=== PATIENT | male | born 1960 | race Caucasian/White ===

== ENCOUNTER 2019-12-24 12:49 | Day surgery (SDC) | payer OTHER, SELFPAY ==
[2019-12-24] VITALS (9 sets, daily range): BP systolic 112–159; BP diastolic 72–97; PULSE 75–92; RESP 12–22; TEMP 36.4–36.9; O2SAT 95–99
--- NOTE | ~2019-12-24 | CT_ITS ---
EXAMINATION: CT abdomen pelvis w con DATE: 12/24/2019 15:09 INDICATION: Right lower abdominal pain TECHNIQUE: Computed tomography (CT) of the abdomen and pelvis was performed with 100 cc Omnipaque 350 intravenous contrast. The dose-length product was 1479.03 mGy-cm. Automated exposure control and ite rative reconstruction technique were employed. COMPARISON: CT dated 05/23/2017 FINDINGS: Lung bases are unremarkable. Heart size is normal. No significant pleural or pericardial ef fusion. The appendix is mildly thickened measuring up to 10 mm transversely with minimal periappendiceal infi ltration, suspicious for acute appendicitis. Diffuse fatty infiltration of the liver. Enlarged prostate gland. The spleen, pancreas, adrenal gland s are unremarkable. There are nonobstructing bilateral renal stones. There are small subcentimeter hy podensities of both kidneys, most likely benign cysts. Gallbladder is present. Nonobstructive bowel g as pattern. Prostate gland is enlarged. Colonic diverticulosis without diverticulitis. No free air or free fluid. Moderate lower thoracic and lumbar spondylosis. IMPRESSION: 1. Appendix is mildly thickened measuring up to 10 mm transversely with minimal periappendiceal infil tration, suspicious for acute appendicitis. Clinically correlate. 2: Nonobstructing bilateral nephrolithiasis. 3: Hepatic steatosis. Reviewed, dictated and finalized at location A. IMPRESSION: 1. Appendix is mildly thickened measuring up to 10 mm transversely with minimal periappendiceal infiltration, suspicious for acute appendicitis. Clinically co rrelate. 2: Nonobstructing bilateral nephrolithiasis. 3: Hepatic steatosis.
[2019-12-24] MEDS: FAMOTIDINE 20 MG/2 ML VIAL IV PUSH (14:37)
[2019-12-24] MEDS: SODIUM CHLORIDE 0.9% IV 1,000 ML 999 ML IV CONT (14:38)
[2019-12-24] MEDS: ONDANSETRON INJ 4 MG/2 ML VIAL IV PUSH ×2 (14:38→18:55)
--- NOTE | 2019-12-24 14:45 | ED.ABDPAIN ---
HPI - Abdominal Pain General Chief Complaint: Abdominal Pain <LUDWIG Talley Last Filed: 12/24/19 16:04> Stated Complaint: abd pain <LUDWIG Talley Last Filed: 12/24/19 16:04> Time Seen by Provider: 12/24/19 12:50 <LUDWIG Talley Last Filed: 12/24/19 16:04> Source: patient <LUDWIG Talley Last Filed: 12/24/19 16:04> Mode of arrival: ambulatory <LUDWIG Talley Last Filed: 12/24/19 16:04> History of Present Illness HPI narrative: Patient is a 59-year-old male who presents to emergency department for evaluation right lower quadrant pain that began over the last day patient notes aching pain to the right lower quadrant denies radiation of pain patient denies any similar occurrence in the past has not taken anything for his symptoms and presents per private vehicle for evaluation <LUDWIG Talley Last Filed: 12/24/19 16:04> Related Data Home Medications: Home Medications Medication Instructions Recorded Confirmed aspirin 81 mg tablet,delayed 81 mg PO DAILY 10/21/19 10/23/19 release atorvastatin 10 mg tablet 10 mg PO DAILY 10/21/19 10/23/19 clomiphene citrate 50 mg tablet PO 10/21/19 10/23/19 losartan 25 mg tablet 25 mg PO DAILY 10/21/19 10/23/19 metformin 500 mg tablet 500 mg PO DAILY 10/21/19 10/23/19 tamsulosin 0.4 mg capsule 0.4 mg PO DAILY 10/23/19 10/23/19 terbinafine HCl 250 mg tablet 250 mg PO DAILY 10/23/19 10/23/19 <LUDWIG Talley Last Filed: 12/24/19 16:04> Allergies/Adverse Reactions: Allergies Allergy/AdvReac Type Severity Reaction Status Date / Time No Known Allergies Allergy Verified 12/24/19 13:06 <LUDWIG Talley Last Filed: 12/24/19 16:04> Review of Systems Review of Systems: All systems reviewed & are unremarkable except as noted in HPI and below <LUDWIG Talley Last Filed: 12/24/19 16:04> PMFSH Past Medical History Medical History: Medical History (Updated 12/24/19 @ 16:59 by Aric Mckenzie MD) BPH (benign prostatic hyperplasia) History of pneumonia Hyperlipidemia Kidney stone ONESIMO (obstructive sleep apnea) Type II diabetes mellitus Urinary tract infection <Omar Emerson PA-C - Last Filed: 12/24/19 16:04> Surgical History Surgical History: Surgical History H/O foot surgery H/O gynecomastia Hemorrhoid <Omar Emerson PA-C - Last Filed: 12/24/19 16:04> Family History Family History: Family History Father Family history of cardiovascular disease, Onset Age: 84 Gout Mother , metastatic lung cancer Metastatic lung carcinoma <LUDWIG Talley Last Filed: 12/24/19 16:04> Social History Social History: Social History Smoking status: Never smoker Alcohol intake: current Alcohol use details: Rarely. 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 Gender identity (if verbalized by the patient): Male <LUDWIG Talley Last Filed: 12/24/19 16:04> Exam Narrative: Exam Narrative: GENERAL: Well-appearing, obese, and in no acute distress. HEAD: Normocephalic, atraumatic. EYES: PERRLA and EOMI. ENT: Nares clear, no rhinorrhea or epistaxis. Mucous membranes moist. CHEST: Clear to auscultation. No respiratory distress. No wheezes rales or rhonchi HEART: Regular rate and rhythm. No murmur heard. Normal peripheral pulses. ABDOMEN: Soft, focal right lower quadrant tenderness to palpation no rebound or guarding noted, nondistended, normal active bowel sounds. EXTREMITIES: Normal range of motion. No edema. SKIN: Warm, dry, no rash. NEURO: No focal deficits. Alert and oriented x3. PSYCH: Normal mood and affect.
[2019-12-24 14:52] LABS: Basophils Absolute Auto 0.1 K/mm3 (0.0-0.1); Basophils Percent Auto 0.9 % (0.2-1.2); Eosinophils Percent Auto 0.1 % (0-4.4); Hematocrit 47.5 % (42.0-52.0); Hemoglobin 15.4 g/dL (14.0-18.0); Immature Granulocyte Absolute 0.04 K/mm3 (0.00-0.031); Immature Granulocyte Percent A 0.5 % (0-0.5); Lymphocytes Absolute Auto 2.18 K/mm3 (0.9-3.2); Lymphocytes Percent Auto 28.6 % (18.3-44.2); Mean Corpuscular HGB Conc 32.4 g/dl (32-36); Mean Corpuscular Hemoglobin 29.1 pg (26-34); Mean Corpuscular Volume 89.8 fl (80-100); Monocytes Absolute Auto 0.5 K/mm3 (0.1-0.6); Monocytes Percent Auto 7.1 % (2.6-8.5); Neutrophils Absolute Auto 4.8 K/mm3 (1.3-6.7); Neutrophils Percent Auto 62.8 % (45.5-73.1); Platelet Count Result 173 k/mm3 (150-375); Red Blood Count 5.29 M/mm3 (4.6-6.20); Red Cell Distribution Width 13.2 % (11.5-14.5); White Blood Count 7.6 K/mm3 (4.5-10.0)
[2019-12-24 15:01] LABS: Alanine Aminotransferase 35 U/L (4-50); Albumin Level 4.3 g/dL (3.5-5.1); Alkaline Phosphatase 118 U/L (38-126); Aspartate Amino Transferase 41 U/L (17-59); Bilirubin,Total 0.6 mg/dL (0.2-1.3); Blood Urea Nitrogen 14 mg/dL (9-20); Calcium 9.3 mg/dL (8.4-10.2); Carbon Dioxide 28 mmol/L (22-30); Chloride 101 mmol/L (98-107); Estimated CRCL calculation 114 ml/min; Estimated Glomerular Filt Rate > 60; Glucose 140 mg/dL (75-110); Lipase 129 U/L (23-300); Potassium 3.9 mmol/L (3.4-5.0); Sodium 136 mmol/L (137-145)
[2019-12-24 15:12] LABS: Estimated CRCL calculation 102 ml/min; Estimated Glomerular Filt Rate > 60
[2019-12-24 15:46] LABS: Add Urine Microscopic? YES; Appearance Urine Clear (Clear); Bacteria Urine Trace /hpf; Bilirubin Urine Negative (Negative); Blood Urine 1+ (Negative); Color Urine Yellow (Yellow); Glucose Urine UA Negative (Negative); Ketones Urine Trace mg/dL (Negative); Leukocyte Esterase Ur Negative LEU/UL (Negative); Mucus Urine Rare /lpf; Nitrate Urine Negative (Negative); Protein Urine Negative (Negative); Urobilinogen Urine Negative mg/dL (<2.0); WBC Urine 0-3 /hpf
--- NOTE | 2019-12-24 16:18 | PM.IMHP ---
H&P: HPI History of Present Illness Chief complaint: abd pain Narrative: Sam Trent is a 59 year old male who presented to the emergency department with complaints of right lower quadrant pain by the instruction of his PCP. The patient reports that around 8 am yesterday he had a gradual onset of generalized mild abdominal pain. Throughout the day, his abdominal pain became more focal to the right lower quadrant and continued to worsen in severity. The patient reports that he called his PCP this morning due to the constant pain and she directed him to the emergency department. CT scan of the abdomen and pelvis showed a dilated appendix measurinf up to 10 mm with minimal periappendiceal infiltration, suspicious for possible acute appendicitis. Labs were unremarkable with normal white blood cell count. Urinalysis negative for UTI. Our service was contacted for the possible acute appendicitis and the patient is now being evaluated in the emergency department. He reports still having focal RLQ abdominal pain. Denies nausea, vomiting, fever, or chills. No other complaints at this time. He does reports recently being diagnosed with type II diabetes and taking metformin and another oral medication for his diabetes. Reportedly, his last hemoglobin A1C was 7.6. Review of Systems Constitutional: Constitutional: Reports as per HPI, Denies chills, Denies excessive sweating, Denies fatigue, Denies fever(s), Denies headache(s) and Denies weakness Eyes: Eyes: Denies change in vision and Denies loss of vision ENT: Reports Normal hearing present, Denies dizziness and Denies headache(s) Cardiovascular: Cardiovascular: Denies chest pain, Denies syncope, Denies leg edema, Denies lightheadedness, Denies radiating jaw, neck or arm pain and Denies dyspnea Respiratory: Respiratory: Denies cough, Denies dyspnea and Denies wheezing Gastrointestinal: Gastrointestinal: Reports as per HPI, Reports abdominal pain (RLQ), Denies bloating, Denies change in bowel habits, Denies change in stool character, Denies constipation, Denies diarrhea, Denies nausea and Denies vomiting Musculoskeletal: Musculoskeletal: Denies deformity, Denies joint swelling, Denies radiating pain into limb and Denies tingling Integumentary/Breasts: Skin/Breast: Denies pruritus, Denies wounds and Denies jaundice Neurologic: Reports Normal hearing present, Denies confusion, Denies dizziness, Denies syncope, Denies headache(s), Denies loss of vision, Denies tingling, Denies tremor(s) and Denies weakness Psychiatric: Psychiatric: Denies anxiety, Denies confusion and Denies depression Endocrine: Endocrine: Denies cold intolerance, Denies excessive sweating, Denies fatigue and Denies heat intolerance Comments: Recent diagnosis of diabetes. Hgb A1C 7.6 reportedly. [facility] Past Medical History Medical History BPH (benign prostatic hyperplasia) History of pneumonia Kidney stone ONESIMO (obstructive sleep apnea) Type II diabetes mellitus Urinary tract infection Surgical History Surgical History H/O foot surgery H/O gynecomastia Hemorrhoid Family History Family History Father Family history of cardiovascular disease, Onset Age: 84 Gout Mother , metastatic lung cancer Metastatic lung carcinoma Social History Social History Smoking status: Never smoker Alcohol intake: current Alcohol use details: Rarely. 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 Gender identity (if verbalized by the patient): Male Meds Home Medications and Allergies Home Medications Medication Instructions Recorded Confirmed Type aspirin 81 mg tablet,delayed 81 mg
[2019-12-24] MEDS: LACTATED RINGERS 1,000 ML 30 ML IV CONT ×2 (16:50→17:58)
[2019-12-24 16:51] LABS: Glucose Point of Care 140 (65-105)
--- NOTE | 2019-12-24 16:58 | WPDANESEPPF ---
Anes - Initial Pre Proc Eval Procedure: Operation Date: 12/24/19 16:30 Proposed Procedures p Laparoscopic Appendectomy - Brenna Sage MD Date/Time: 12/24/19 16:58 Surgeon: Brenna Sage MD Pre Op Diagnosis: abd pain Patient Data Age: 59 Gender: M Height: 5 ft 7 in Weight: 136 kg Last Vital Signs Temp 36.4 C 12/24/19 13:02 Pulse 89 12/24/19 16:25 Resp 16 12/24/19 16:25 BP 138/91 H 12/24/19 16:25 Pulse Ox 98 12/24/19 16:25 Allergies Allergy/AdvReac Type Severity Reaction Status Date / Time No Known Allergies Allergy Verified 12/24/19 13:06 Home Medications Medication Instructions Recorded Confirmed Type aspirin 81 mg tablet,delayed 81 mg PO DAILY 10/21/19 10/23/19 History release atorvastatin 10 mg tablet 10 mg PO DAILY 10/21/19 10/23/19 History clomiphene citrate 50 mg tablet PO 10/21/19 10/23/19 History losartan 25 mg tablet 25 mg PO DAILY 10/21/19 10/23/19 History metformin 500 mg tablet 500 mg PO DAILY 10/21/19 10/23/19 History tamsulosin 0.4 mg capsule 0.4 mg PO DAILY 10/23/19 10/23/19 History terbinafine HCl 250 mg tablet 250 mg PO DAILY 10/23/19 10/23/19 History Laboratory Tests 12/24/19 12/24/19 12/24/19 14:39 14:39 15:05 WBC 7.6 K/mm3 K/mm3 (4.5-10.0) RBC 5.29 M/mm3 M/mm3 (4.6-6.20) Hgb 15.4 g/dL g/dL (14.0-18.0) Hct 47.5 % % (42.0-52.0) MCV 89.8 fl fl (80-100) MCH 29.1 pg pg (26-34) MCHC 32.4 g/dl g/dl (32-36) RDW 13.2 % % (11.5-14.5) Plt Count 173 k/mm3 k/mm3 (150-375) MPV 12.0 fl H fl (7.4-10.4) Immature Gran % (Auto) 0.5 % % (0-0.5) Neut % (Auto) 62.8 % % (45.5-73.1) Lymph % (Auto) 28.6 % % (18.3-44.2) Amite % (Auto) 7.1 % % (2.6-8.5) Eos % (Auto) 0.1 % % (0-4.4) Baso % (Auto) 0.9 % % (0.2-1.2) Lymph # (Auto) 2.18 K/mm3 K/mm3 (0.9-3.2) Amite # (Auto) 0.5 K/mm3 K/mm3 (0.1-0.6) Eos # (Auto) 0.0 K/mm3 K/mm3 (0-0.3) Baso # (Auto) 0.1 K/mm3 K/mm3 (0.0-0.1) Abs Immat Gran (auto) 0.04 K/mm3 H K/mm3 (0.00-0.031) Absolute Neuts (auto) 4.8 K/mm3 K/mm3 (1.3-6.7) Absolute Nucleated RBC 0.0 K/mm3 K/mm3 (0.0-0.012) Nucleated RBC % 0.0 % % (0.0-0.2) Sodium 136 mmol/L L mmol/L (137-145) Potassium 3.9 mmol/L mmol/L (3.4-5.0) Chloride 101 mmol/L mmol/L (98-107) Carbon Dioxide 28 mmol/L mmol/L (22-30) BUN 14 mg/dL mg/dL (9-20) Creatinine 0.80 mg/dL mg/dL 0.90 mg/dL mg/dL (0.7-1.3) (0.8-1.5) Estim Creat Clear Calc 114 ml/min ml/min 102 ml/min ml/min Estimated GFR > 60 > 60 (59 - ) (59 - ) Glucose 140 mg/dL H mg/dL (75-110) POC Capillary Glucose Calcium 9.3 mg/dL mg/dL (8.4-10.2) Total Bilirubin 0.6 mg/dL mg/dL (0.2-1.3) AST 41 U/L U/L (17-59) ALT 35 U/L U/L (4-50) Alkaline Phosphatase 118 U/L U/L (38-126) Total Protein 7.0 g/dL g/dL (6.3-8.2) Albumin 4.3 g/dL g/dL (3.5-5.1) Lipase 129 U/L U/L (23-300) Urine Color Urine Appearance Urine pH Ur Specific Woodruff Urine Protein Urine Glucose (UA) Urine Ketones Ur Blood (Man) Urine Nitrate Urine Bilirubin Urine Urobilinogen Leukocyte Esterase Rfl Urine RBC Urine WBC Urine Bacteria Urine Mucus 12/24/19 12/24/19 15:29 16:46 WBC RBC Hgb Hct MCV MCH MCHC RDW Plt Count MPV Immature Gran % (Auto) Neut % (Auto) Lymph % (Auto)
[2019-12-24] MEDS: BUPIVACAINE/EPINEPHRINE 0.5% 30 ML VIAL INFILTRATE (17:35)
[2019-12-24] MEDS: KETOROLAC 30 MG/ML VIAL (*BKC) 15 MG IV PUSH (17:40)
--- NOTE | 2019-12-24 17:48 | PM.PROC ---
Procedure Note - Detailed Date of procedure: 12/24/19 Pre-op diagnosis: acute appendicitis acute appendicitis Procedure performed: Laparoscopic appendectomy Description of procedure: The patient was brought into the operating room placed in the supine position. After adequate induction of general anesthesia, the patient was prepped and draped in normal sterile fashion. A time-out was then done to verify the patient's identity as well as the procedure being performed. I began by making a 5 mm incision in the infraumbilical region. A veres needle was used to gain access into the peritoneal cavity. Once into the peritoneal cavity, CO2 gas was insufflated. After adequate pneumoperitoneum was achieved, a 5 mm Optiview trocar was placed into the peritoneal cavity. The laparoscope was placed into the 5 mm trocar. Under direct visualization, I went ahead and placed a further 5 mm suprapubic port as well as a 12 mm port in the left lower abdomen. At this point, I was able to visualize cecum. The cecum was retracted both cephalad and medial, and this allowed us to expose the appendix. The appendix was noted to be very dilated, injected, and inflamed. There was no obvious perforation of the appendix. I then grasped the appendix near the tip of the appendix and retracted both anterior and lateral. This allowed exposure of the base of the appendix with the cecum. I then created a window with the Ayleen dissector between the appendix and the mesoappendix at the base of the appendix. Once this was achieved, a vascular staple load on the Endo-EDIS was placed through the 12 mm port site and subsequently transected the mesoappendix. I then reloaded the Endo-EDIS with a blue staple load and transected the base of the appendix with the cecum. Once the appendiceal specimen was completely detached, a Endo pouch was placed through the 12 mm port site. The appendix was placed into the Endo pouch and removed through the 12 mm port site. The appendix will now be sent to pathology for further review. I then visualized the right lower quadrant, both staple lines were noted to be intact and hemostatic. No other pathology was noted in the right lower quadrant or pelvis. I then moved the laparoscope to the 5 mm suprapubic port. I then visualized our port of entry at the 5 mm infraumbilical site. No iatrogenic injury or other pathology was seen in the upper abdomen. I then desufflated the abdomen and all ports were removed. The fascia of the 12 mm port site was closed with an 0 Vicryl figure of 8 suture. All port sites were then closed with 4 O Monocryl subcuticular suture. The patient tolerated the procedure well and was extubated in the operating room postoperatively. The patient will be transferred to the recovery room in stable condition. Anesthesia: GETA Surgeon: Brenna Sage MD Estimated blood loss (mL): 5 Drains: No Packing: No Pathology: yes Complications: No immediate complications Condition: stable Disposition: PACU Findings: Acute uncomplicated appendicitis
[2019-12-24 18:31] LABS: Glucose Point of Care 152 (65-105)
== END 2019-12-24 19:37 | disposition home or self-care (01) ==
LOC: ANHED 15:53 → ANHSURGERY 16:05
PROVIDERS: Emergency Medicine Emergency Medical Services; Emergency Provider Emergency Medicine; PCP Family Medicine; Visit Provider Surgery
PROC: 0DTJ4ZZ Resection of Appendix, Percutaneous Endoscopic Approach (ICD-10-PCS; CPT 44970; principal; 2019-12-24 16:30)
DX: K35.30 Acute appendicitis with localized peritonitis, without perforation or gangrene (principal); K36 Other appendicitis; E78.5 Hyperlipidemia, unspecified; E11.9 Type 2 diabetes mellitus without complications; G47.33 Obstructive sleep apnea (adult) (pediatric); N40.0 Benign prostatic hyperplasia without lower urinary tract symptoms; Z79.82 Long term (current) use of aspirin; Z79.84 Long term (current) use of oral hypoglycemic drugs
CPT/HCPCS: 44970; 36415; 74177; 80053; 81001; 83690; 85025; 88304; 96365; 96375; 99285; A9270; J0131; J0330; J1100; J1885; J2250; J2405; J2543; J2704; J2710; J3010; J7030; J7120; Q9967

== ENCOUNTER 2020-01-23 04:17 | Outpatient (CLI) | payer OTHER, SELFPAY ==
[2020-01-23 18:08] LABS: SARS-CoV-2 RNA PCR Negative
== END 2020-01-23 04:18 | disposition home or self-care (01) ==
LOC: ANHCOVIDDT 04:18
PROVIDERS: PCP Family Medicine; Visit Provider Internal Medicine Gastroenterology
DX: Z01.812 Encounter for preprocedural laboratory examination (principal); Z11.59 Encounter for screening for other viral diseases
CPT/HCPCS: 87635; C9803; U0003

== ENCOUNTER 2020-01-26 00:11 | Day surgery (SDC) | payer OTHER, SELFPAY ==
[2020-01-20 12:45] VITALS: BMI 46.9
[2020-01-26 07:50] VITALS: BP 145/87; PULSE 74; RESP 20; TEMP 36.8; O2SAT 97
[2020-01-26] MEDS: LACTATED RINGERS 1,000 ML 150 ML IV CONT (08:03)
--- NOTE | 2020-01-26 08:04 | WPDANESEPPF ---
Anes - Initial Pre Proc Eval Procedure: Operation Date: 01/26/20 09:00 Proposed Procedures p Screening Colonoscopy - Aries Hagen MD Date/Time: 01/26/20 08:04 Surgeon: Aries Hagen MD Pre Op Diagnosis: Neoplasm Screening/ Hx Colon Polyps Patient Data Age: 59 Gender: M Height: 5 ft 7 in Weight: 134.7 kg Last Vital Signs Temp 36.8 C 01/26/20 07:50 Pulse 74 01/26/20 07:50 Resp 20 01/26/20 07:50 BP 145/87 H 01/26/20 07:50 Pulse Ox 97 01/26/20 07:50 Allergies Allergy/AdvReac Type Severity Reaction Status Date / Time No Known Allergies Allergy Verified 01/26/20 07:44 Home Medications Medication Instructions Recorded Confirmed Type aspirin 81 mg tablet,delayed 81 mg PO DAILY 10/21/19 01/26/20 History release atorvastatin 10 mg tablet 10 mg PO DAILY 10/21/19 01/26/20 History clomiphene citrate 50 mg tablet 25 mg PO EVERY OTHER DAY 10/21/19 01/26/20 History losartan 25 mg tablet 25 mg PO DAILY 10/21/19 01/26/20 History metformin 500 mg tablet 500 mg PO DAILY 10/21/19 01/26/20 History tamsulosin 0.4 mg capsule 0.4 mg PO DAILY 10/23/19 01/26/20 History docusate sodium [Colace] 100 mg PO BID #20 cap 12/24/19 01/26/20 Rx tramadol 50 mg PO Q4H PRN #30 tablet 12/24/19 01/26/20 Rx glipizide 10 mg PO DAILY 01/26/20 01/26/20 History Patient hx anesthesia problems: none Family hx anesthesia problems: none PMFSH Past Medical History Medical History BPH (benign prostatic hyperplasia) History of pneumonia Hyperlipidemia Kidney stone ONESIMO (obstructive sleep apnea) Type II diabetes mellitus Urinary tract infection Surgical History Surgical History H/O foot surgery H/O gynecomastia Hemorrhoid S/P laparoscopic appendectomy 12/24/19 Family History Family History Father Family history of cardiovascular disease, Onset Age: 84 Gout Mother , metastatic lung cancer Metastatic lung carcinoma Social History Social History Smoking status: Never smoker Alcohol intake: current Substance use: never 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 Gender identity (if verbalized by the patient): Male Anes - Eval Final PreProcedure Day of Procedure 01/26/20 08:04 Patient weight: morbidly obese Heart: regular rate and rhythm Lungs: clear to auscultation Airway: Mallampati scale class II Neurological: alert and oriented Last oral intake: >/= 8 hours ASA classification: III Emergent: no Anesthetic plan: proceed Anesthesia type and monitoring: general GIVS and standard monitoring Informed Consent: The patient's anesthetic plan and its attendant risks and benefits were discussed with the patient/family/POA. Questions were solicited and answers provided to the satisfaction of the patient/family/POA.
[2020-01-26 08:08] LABS: Glucose Point of Care 158 (65-105)
--- NOTE | 2020-01-26 08:11 | WPDGICN ---
Assessment and Plan Assessment and plan (1) History of colon polyps: Code(s): Z86.010 - Personal history of colonic polyps Status: Acute Assessment and Plan: Plan is for surveillance colonoscopy now and at 5 year intervals in the future. Because of prior history of colon polyps. High-fiber diet advised. (2) Morbid obesity with BMI of 45.0-49.9, adult: Code(s): E66.01 - Morbid (severe) obesity due to excess calories; Z68.42 - Body mass index (BMI) 45.0-49.9, adult Status: Acute GI Consult Note Consult date/time: 01/26/20 08:11 HPI: Sam Trent is a 59 year old male seen in evaluation at the request of Dr Juarez. Patient presents for follow-up colonoscopy. Patient has a history of colon polyps most recently 5 years ago. He states his current weight appetite bowel movements are normal. He presents today for colonoscopy. Family history is significant both grandparents have had colon cancer. There is no reported history of colon cancer or and parents. However mother had lung cancer. patient reports having had appendectomy 5 weeks prior to this time. He is healing well at this point is bowel habits are returned to normal. He denies any abdominal pain. Denies any blood in his stools. Review of Systems Review of Systems: All systems reviewed & are unremarkable except as noted in HPI and below PMFSH Past Medical History Medical History BPH (benign prostatic hyperplasia) History of pneumonia Hyperlipidemia Kidney stone ONESIMO (obstructive sleep apnea) Type II diabetes mellitus Urinary tract infection Surgical History Surgical History H/O foot surgery H/O gynecomastia Hemorrhoid S/P laparoscopic appendectomy 12/24/19 Family History Family History Father Family history of cardiovascular disease, Onset Age: 84 Gout Mother , metastatic lung cancer Metastatic lung carcinoma Social History Social History Smoking status: Never smoker Alcohol intake: current Substance use: never 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 Gender identity (if verbalized by the patient): Male Meds Home Medications and Allergies Home Medications Medication Instructions Recorded Confirmed Type aspirin 81 mg tablet,delayed 81 mg PO DAILY 10/21/19 01/26/20 History release atorvastatin 10 mg tablet 10 mg PO DAILY 10/21/19 01/26/20 History clomiphene citrate 50 mg tablet 25 mg PO EVERY OTHER DAY 10/21/19 01/26/20 History losartan 25 mg tablet 25 mg PO DAILY 10/21/19 01/26/20 History metformin 500 mg tablet 500 mg PO DAILY 10/21/19 01/26/20 History tamsulosin 0.4 mg capsule 0.4 mg PO DAILY 10/23/19 01/26/20 History docusate sodium [Colace] 100 mg PO BID #20 cap 12/24/19 01/26/20 Rx tramadol 50 mg PO Q4H PRN #30 tablet 12/24/19 01/26/20 Rx glipizide 10 mg PO DAILY 01/26/20 01/26/20 History Allergies Allergy/AdvReac Type Severity Reaction Status Date / Time No Known Allergies Allergy Verified 01/26/20 07:44 Vital Signs Vital Signs - 24 hr 01/26/20 07:50 Temperature 36.8 C Pulse Rate 74 Respiratory Rate 20 Blood Pressure 145/87 H Pulse Oximetry 97 Exam Narrative: Exam Narrative: Physical exam reveals patient to be alert. Vital signs stable. HEENT exam unremarkable. He is anicteric. Lungs are clear to auscultation and percussion. Heart is without murmur or extra sounds. Abdominal exam is somewhat obese. Bowel sounds are present soft nontender with no hepatosplenomegaly. He is well he healing incisions from recent laparoscopy. Digital external rectal exam is normal.
[2020-01-26 09:11] VITALS: BP 131/87; PULSE 79; RESP 21; O2SAT 99
[2020-01-26 09:21] VITALS: BP 131/87; PULSE 72; RESP 19; O2SAT 97
[2020-01-26 09:31] VITALS: BP 142/77; PULSE 73; RESP 18; O2SAT 98
== END 2020-01-26 09:37 | disposition home or self-care (01) ==
PROVIDERS: PCP Family Medicine; Visit Provider Internal Medicine Gastroenterology
PROC: 0DJD8ZZ Inspection of Lower Intestinal Tract, Via Natural or Artificial Opening Endoscopic (ICD-10-PCS; CPT 45378; principal; 2020-01-26 09:00)
DX: Z12.11 Encounter for screening for malignant neoplasm of colon (principal); D12.5 Benign neoplasm of sigmoid colon; K62.1 Rectal polyp; K64.8 Other hemorrhoids; E11.9 Type 2 diabetes mellitus without complications; E78.5 Hyperlipidemia, unspecified; N40.0 Benign prostatic hyperplasia without lower urinary tract symptoms; G47.33 Obstructive sleep apnea (adult) (pediatric); Z79.82 Long term (current) use of aspirin; Z79.84 Long term (current) use of oral hypoglycemic drugs; E66.01 Morbid (severe) obesity due to excess calories; Z68.42 Body mass index [BMI] 45.0-49.9, adult
CPT/HCPCS: 45385; 88305; J2704; J7120

== ENCOUNTER 2020-03-02 18:51 | Emergency (ER) | payer OTHER, SELFPAY ==
--- NOTE | ~2020-03-02 | XR_ITS ---
EXAMINATION: XR toe 1st LT min 2V EXAM DATE: 03/02/2020 19:23 INDICATION: Possible foreign body. TECHNIQUE: Left 1st finger frontal, lateral and oblique projections obtained and reviewed. There i s no prior study for comparison. FINDINGS: There are no acute left 1st toe fractures or dislocations identified. There is no subcutan eous gas. The soft tissue is unremarkable. There are no radiopaque foreign bodies. IMPRESSION: No radiopaque foreign bodies identified. Reviewed, dictated and finalized at location A.
[2020-03-02 19:00] VITALS: BP 155/82; PULSE 98; RESP 18; TEMP 36.8; O2SAT 98
--- NOTE | 2020-03-02 19:04 | ED.GENADULT ---
HPI - General Adult General Chief complaint: Wound/Laceration Stated complaint: splinter left great toe Time Seen by Provider: 03/02/20 19:04 Source: patient and RN notes reviewed Mode of arrival: ambulatory Limitations: no limitations History of Present Illness HPI narrative: 60-year-old male presents with complaints of foreign body in plantar of LEFT great toe and pain for 1 day. Sam says he was cleaning his basement on 03/01/20 and later felt as if something was in his toe, unable to visualize anything. No known injury. No swelling, erythema, or drainage. Hurts to bear weight. No radiation of pain. No numbness or tingling or loss of mobility. Denies inability to bear weight. 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 Relieving factor is rest. No fever or chills. Suspect foreign body (splinter). The patient reports he have not been diagnosed with COVID-19. The patient reports he is not waiting for the results of a COVID-19 lab test. The patient reports he do not have fever, chills, weakness, or fatigue. The patient reports he do not have a new or worsening cough or shortness of breath. Denies chest pain. The patient reports he do not have any rhinorrhea, congestion, sore throat, nausea, vomiting, abdominal pain, and diarrhea. Tolerating po intake well. Denies recent traveling. Denies concerns for COVID-19 or exposures been home with limited outdoor exposure except for essential household needs, work, and return home. At this time, patient is not suspected of having COVID-19. Some parts of this dictation were generated by voice recognition software and may contain typographical and/or grammatical inaccuracies. Related Data Home Medications Medication Instructions Recorded Confirmed aspirin 81 mg tablet,delayed 81 mg PO DAILY 10/21/19 01/26/20 release atorvastatin 10 mg tablet 10 mg PO DAILY 10/21/19 01/26/20 clomiphene citrate 50 mg tablet 25 mg PO EVERY OTHER DAY 10/21/19 01/26/20 losartan 25 mg tablet 25 mg PO DAILY 10/21/19 01/26/20 metformin 500 mg tablet 500 mg PO DAILY 10/21/19 01/26/20 tamsulosin 0.4 mg capsule 0.4 mg PO DAILY 10/23/19 01/26/20 glipizide 10 mg PO DAILY 01/26/20 01/26/20 Allergies Allergy/AdvReac Type Severity Reaction Status Date / Time No Known Allergies Allergy Verified 01/26/20 07:44 Review of Systems Review of Systems: Narrative: CONSTITUTIONAL: Denies fever, chills, sweats. EYES: Denies visual changes, redness, discharge. ENT: Denies rhinorrhea, congestion, sore throat, otalgia. CARDIOVASCULAR: Denies chest pain, palpitations, edema. RESPIRATORY: Denies dyspnea, wheezing, cough. GASTROINTESTINAL: Denies abdominal pain, nausea, vomiting, diarrhea. GENITOURINARY: Denies dysuria, hematuria, abnormal discharge. SKIN: Denies rash or itching. MUSCULOSKELETAL: Denies acute back pain or myalgia. Complains of LT great toe with foreign body in plantar area and tenderness. Denies swelling, erythema. NEUROLOGIC: Denies numbness or focal weakness. PSYCHIATRIC: Denies anxiety or depression. All systems reviewed & are unremarkable except as noted in HPI and below PMFSH Past Medical History Medical History BPH (benign prostatic hyperplasia) History of pneumonia Hyperlipidemia Kidney stone ONESIMO (obstructive sleep apnea) Type II diabetes mellitus Urinary tract infection Surgical History Surgical History H/O foot surgery H/O gynecomastia Hemorrhoid S/P laparoscopic appendectomy 12/24/19 Family History Family History Father Family history of cardiovascular disease, Onset Age: 84 Gout Mother , metastatic lung cancer Metastatic lung carcinoma Social History Social History Smoking status: Never smoker Alcohol intake: lynda
== END 2020-03-02 19:46 | disposition home or self-care (01) ==
PROVIDERS: Emergency Provider Nurse Practitioner Family; PCP Family Medicine
DX: S90.112A Contusion of left great toe without damage to nail, initial encounter (principal); E11.9 Type 2 diabetes mellitus without complications; E78.2 Mixed hyperlipidemia; N40.0 Benign prostatic hyperplasia without lower urinary tract symptoms; Z79.82 Long term (current) use of aspirin; Z79.84 Long term (current) use of oral hypoglycemic drugs; X58.XXXA Exposure to other specified factors, initial encounter; Y92.008 Other place in unspecified non-institutional (private) residence as the place of occurrence of the external cause
CPT/HCPCS: 73660; 99213; G0463

== ENCOUNTER 2020-05-31 12:29 | Outpatient (NON) | payer OTHER, SELFPAY ==
[2020-06-01 22:36] LABS: SARS-CoV-2 RNA PCR Negative
== END 2020-05-31 12:30 ==
LOC: ANHCOVIDDT 12:29
PROVIDERS: PCP Family Medicine; Visit Provider Family Medicine
DX: Z20.828 Contact with and (suspected) exposure to other viral communicable diseases (principal); R05 Cough
CPT/HCPCS: 87635; C9803; U0003

== ENCOUNTER 2020-06-01 10:13 | Emergency (ER) | payer OTHER, SELFPAY ==
--- NOTE | ~2020-06-01 | XR_ITS ---
EXAMINATION: XR foot LT min 3V EXAM DATE: 06/01/2020 11:30 INDICATION: twisted foot yesterday, heard a 'pop', pain on 1st metatarsal . Initial encounter. TECHNIQUE: Left foot dorsoplantar, lateral and oblique projections obtained and reviewed. There is n o prior study for comparison. FINDINGS: Left metatarsal bones unremarkable. There are no acute fractures or dislocations identifi ed. There is no subcutaneous gas. The soft tissue is unremarkable. There are no radiopaque foreig n bodies. IMPRESSION: No acute osseous findings. Reviewed, dictated and finalized at location B. L OR MOTEL RECEPTIONIST IMPRESSION: No acute osseous findings.
[2020-06-01 10:25] VITALS: BP 116/84; PULSE 85; RESP 20; TEMP 36.9; O2SAT 97
--- NOTE | 2020-06-01 11:09 | ED.EXTPRO ---
HPI - Extremity Problem General Chief complaint: Extremity Problem,Nontraumatic Stated complaint: L/ankle pain Time Seen by Provider: 06/01/20 11:09 Source: patient and RN notes reviewed Mode of arrival: ambulatory Limitations: no limitations History of Present Illness HPI Narrative: 60-year-old male presents with complaints of left foot pain for the past 4 days. Sam says he was sitting in bed and rotated foot and heard a popping noise, otherwise no known injury. Advil 400mg (last on 05/31/20) without relief. Hurts to bear weight. No radiation of pain. No numbness, tingling, or loss of mobility. Exacerbating factor applying weight and extending foot. Denies inability to bear weight. Denies discoloration. Denies suspect foreign body. Remains active. The patient reports he have not been diagnosed with COVID-19. The patient reports he is not waiting for the results of a COVID-19 lab test. The patient reports he do not have fever, chills, weakness, or fatigue. The patient reports he do not have a new or worsening cough or shortness of breath. Denies chest pain. The patient reports he do not have any rhinorrhea, congestion, loss of taste, sore throat, nausea, vomiting, abdominal pain, and diarrhea. Tolerating po intake well. Denies recent traveling. Denies concerns for COVID-19 or exposures been home with limited outdoor exposure except for essential household needs, work, and return home. At this time, patient is not suspected of having COVID-19. Some parts of this dictation were generated by voice recognition software and may contain typographical and/or grammatical inaccuracies. Related Data Home Medications Medication Instructions Recorded Confirmed aspirin 81 mg tablet,delayed 81 mg PO DAILY 10/21/19 06/01/20 release atorvastatin 10 mg tablet 10 mg PO DAILY 10/21/19 06/01/20 clomiphene citrate 50 mg tablet 25 mg PO EVERY OTHER DAY 10/21/19 06/01/20 losartan 25 mg tablet 25 mg PO DAILY 10/21/19 06/01/20 metformin 500 mg tablet 500 mg PO DAILY 10/21/19 06/01/20 tamsulosin 0.4 mg capsule 0.4 mg PO DAILY 10/23/19 06/01/20 glipizide 10 mg PO DAILY 01/26/20 06/01/20 Allergies Allergy/AdvReac Type Severity Reaction Status Date / Time No Known Allergies Allergy Verified 01/26/20 07:44 Review of Systems Review of Systems: Narrative: CONSTITUTIONAL: Denies fever, chills, sweats. EYES: Denies visual changes, redness, discharge. ENT: Denies rhinorrhea, congestion, sore throat, otalgia. CARDIOVASCULAR: Denies chest pain, palpitations, edema. RESPIRATORY: Denies dyspnea, wheezing, cough. GASTROINTESTINAL: Denies abdominal pain, nausea, vomiting, diarrhea. SKIN: Denies rash or itching. MUSCULOSKELETAL: Denies acute back pain or myalgia. Complains of pain to left foot. NEUROLOGIC: Denies numbness or focal weakness. PSYCHIATRIC: Denies anxiety or depression. All other systems reviewed are negative, except as documented in HPI and below. FORMERLY [facility], [facility] Past Medical History Medical History (Updated 06/01/20 @ 11:27 by TILA Martinez) BPH (benign prostatic hyperplasia) History of colon polyps History of pneumonia Hyperlipidemia Kidney stone Morbid obesity with BMI of 45.0-49.9, adult ONESIMO (obstructive sleep apnea) Type II diabetes mellitus Urinary tract infection Surgical History Surgical History (Updated 06/01/20 @ 11:23 by TILA Martinez) H/O foot surgery H/O gynecomastia Hemorrhoid History of arthroscopy of knee RT S/P laparoscopic appendectomy 12/24/19 Family History Family History Father Family history of cardiovascular disease, Onset Age: 84 Gout Mother , metastatic lung cancer Metastatic lung carcinoma Social History Social History (Updated 06/01/20 @ 11:24 by TILA Martinez) Smoking status: Never smoker Tobacco type: cigarettes Second hand tobacco smoke exposure: No Alcohol intak
[2020-06-01] MEDS: KETOROLAC (*BKC) 60 MG/2 ML VIAL IM (11:23)
--- NOTE | 2020-06-01 11:53 | PC.NURSE ---
randall wrap applied STORY TELLER INTACT
== END 2020-06-01 11:49 | disposition home or self-care (01) ==
PROVIDERS: Emergency Provider Nurse Practitioner Family; PCP Family Medicine
DX: M25.572 Pain in left ankle and joints of left foot (principal); N40.0 Benign prostatic hyperplasia without lower urinary tract symptoms; E78.5 Hyperlipidemia, unspecified; G47.33 Obstructive sleep apnea (adult) (pediatric); E11.9 Type 2 diabetes mellitus without complications; E66.01 Morbid (severe) obesity due to excess calories; Z68.41 Body mass index [BMI] 40.0-44.9, adult
CPT/HCPCS: 73630; 96372; 99213; G0463; J1885

== ENCOUNTER → 2021-03-15 13:00 | Outpatient (CLI) | payer OTHER, SELFPAY ==
--- NOTE | ~2021-03-15 | MR_ITS ---
EXAMINATION: MR ankle LT wo con DATE: 03/15/2021 13:46 INDICATION: Left ankle pain TECHNIQUE: Magnetic resonance imaging (MRI) of the left ankle was performed without intravenous contr ast. Sequences included sagittal, coronal, and axial proton-density weighted fast spin echo without a nd with fat saturation. COMPARISON: None. FINDINGS: Medial ankle ligaments: Scarring consistent with chronic sprain of the deep deltoid ligament with associated mild medial mall eolar cystic change and edema at the insertion of the distal deltoid ligament. Thickening and mild in creased signal of the anterior superficial deltoid ligament also consistent with scarring related to chronic sprain. The spring ligament complex is normal. Lateral ankle ligaments: The anterior and posterior inferior tibiofibular ligaments are normal. Mild thickening of the anterio r talofibular and calcaneofibular ligaments without surrounding edema consistent with scarring relate d to chronic sprain. Heterotopic ossification at the talar side of the posterior talofibular ligament and mildly disorganized pattern of ligament fibers consistent with additional sequela of chronic spr ain. Tendons: Achilles tendon is normal. Mild fusiform thickening and mild increased intrasubstance signal of the p eroneus longus tendon consistent with mild tendinopathy without discrete tear. The peroneus brevis te ndon is normal. The tibialis anterior and extensor hallucis longus and extensor digitorum longus tend ons are normal. Small amount of fluid surrounding the normal-appearing tibialis posterior tendon cons istent with mild tenosynovitis. The flexor digitorum longus and flexor hallucis longus tendons are no rmal. Plantar fascia: Plantar aponeurosis is normal. Bones/other: Bone alignment is normal. No fracture. Osteoarthritis at the left ankle with mild nonuniform joint sp randall narrowing. Most prominent medially at the articulation between the medial aspect of the talar dom e and the medial malleolus where there is subarticular edema both sides of the joint space. There is deep chondral ulceration and fissuring with mild underlying subarticular cystic change along the late ral rim of the talar dome. Prominent marginal osteophytes at the anterior margins of the tibial plafo nd and talar dome. Mild osteoarthritis at the tarsometatarsal joints. No pathologic marrow replacing process. Lisfranc ligament complex is normal. Sinus Tarsi and tarsal tunnel are unremarkable. Fluid: Physiologic amount fluid in the joint spaces. Mild subcutaneous edema overlying the lateral malleolus . IMPRESSION: 1. Mild polyarticular osteoarthritis at the left ankle and multiple tarsal metatarsal joints. 2. Ligament scarring and small amounts of heterotopic ossification consistent with chronic medial and lateral ankle sprains. 3. Mild peroneus longus tendinopathy without discrete tear. 4. Mild tibialis posterior tenosynovitis with normal-appearing tendon. Reviewed, dictated and finalized at location A. IMPRESSION: 1. Mild polyarticular osteoarthritis at the left ankle and multiple tarsal meta tarsal joints. 2. Ligament scarring and small amounts of heterotopic ossification consistent w ith chronic medial and lateral ankle sprains. 3. Mild peroneus longus tendinopathy without discrete tear. 4. Mild tibialis posterior tenosynovitis with normal-appearing tendon.
== END ==
PROVIDERS: Visit Provider Student in an Organized Health Care Education/Training Program
DX: M19.072 Primary osteoarthritis, left ankle and foot (principal); S93.492A Sprain of other ligament of left ankle, initial encounter; X58.XXXA Exposure to other specified factors, initial encounter
CPT/HCPCS: 73721

== ENCOUNTER → 2021-08-28 12:06 | Outpatient (CLI) | payer OTHER, SELFPAY ==
--- NOTE | ~2021-08-28 | MR_ITS ---
EXAMINATION: MR knee LT wo con DATE: 08/28/2021 12:49 INDICATION: Left knee pain TECHNIQUE: Magnetic resonance imaging (MRI) of the left knee was performed without intravenous contra st. Sequences included coronal PD-weighted FSE, coronal PD-weighted FS FSE, sagittal T2-weighted FSE , sagittal PD-weighted FS FSE and axial PD weighted fat saturated FSE. COMPARISON: None. FINDINGS: Medial compartment: Medial meniscus is normal. Shallow chondral fissuring with mild chondral surface irregularity along t he medial tibial plateau and anterior to central weightbearing medial femoral condyle. Lateral compartment: Lateral meniscus is normal. Small region of partial-thickness chondral fissuring involving less than 50% the cartilage thickness along the posterior aspect of the lateral tibial plateau. Cartilage along the weightbearing lateral femoral condyle is normal. Patellofemoral compartment: Chondral fissure which appears to involve greater than 50% the cartilage thickness at the medial mahoney llar facet. Trochlear cartilage is normal. Ligaments and tendons: Anterior and posterior cruciate ligaments are normal. There is thickening and mild intrasubstance sig nal along the proximal medial collateral ligament with mild surrounding edema consistent with low to moderate grade sprain. The fibular collateral ligament complex is normal. Mild patellar tendinopathy with enthesophytes at its anterior tibial tubercle insertion. Quadriceps tendon is normal. The visual ized medial and lateral hamstring tendons as well as the iliotibial band are normal. Fluid: Physiologic amount of fluid in the joint space. No loose osteochondral bodies identified. There is mi ld prepatellar edema without discrete bursal fluid collection. Osseous/other: Normal marrow signal. No fracture or pathologic marrow replacing process. IMPRESSION: 1. Low to moderate grade sprain of the proximal medial collateral ligament with surrounding edema sug gesting relatively recent injury. 2. Mild tricompartmental osteoarthritis with small regions of moderate grade chondromalacia in all 3 compartments.. Reviewed, dictated and finalized at location A. S COORDINATOR IMPRESSION: 1. Low to moderate grade sprain of the proximal medial collateral ligament with surrounding edema suggesting relatively recent injury. 2. Mild tricompartmental osteoarthritis with small regions of moderate grade ch ondromalacia in all 3 compartments..
== END ==
PROVIDERS: PCP Family Medicine; Visit Provider Orthopaedic Surgery
DX: M25.562 Pain in left knee (principal); S83.412A Sprain of medial collateral ligament of left knee, initial encounter; M17.12 Unilateral primary osteoarthritis, left knee; M94.262 Chondromalacia, left knee
CPT/HCPCS: 73721

== ENCOUNTER 2022-01-05 07:55 | Outpatient (CLI) | payer OTHER, SELFPAY ==
--- NOTE | 2022-01-05 08:00 | ECG_ITS ---
Measurements Intervals [place] Rate: 70 P: 56 PA: 171 QRS: 34 QRSD: 108 T: 30 QT: 412 QTc: 446 Interpretive Statements SINUS RHYTHM NORMAL ECG NO PREVIOUS ECG AVAILABLE FOR COMPARISON Electronically Signed On 01-05-2022 14:10:01 CDT by Richard Reyna M.D.
[2022-01-05 08:32] LABS: Anion Gap 8 mmol/L (8-16); Blood Urea Nitrogen 21 mg/dL (9-20); Calcium 8.7 mg/dL (8.4-10.2); Carbon Dioxide 24 mmol/L (22-30); Chloride 107 mmol/L (98-107); Estimated Glomerular Filt Rate > 60; Glucose 128 mg/dL (65-110); Potassium 4.3 mmol/L (3.4-5.0); Sodium 139 mmol/L (137-145)
== END 2022-01-05 07:56 | disposition home or self-care (01) ==
LOC: ANHSURGERY 07:58
PROVIDERS: Anesthesiology; PCP Family Medicine; Visit Provider Orthopaedic Surgery
DX: E11.9 Type 2 diabetes mellitus without complications (principal); Z01.818 Encounter for other preprocedural examination
CPT/HCPCS: 36415; 80048; 93005

== ENCOUNTER 2022-01-08 01:17 | Day surgery (SDC) | payer OTHER, SELFPAY ==
[2022-01-01 10:30] VITALS: BMI 45.4
--- NOTE | 2022-01-01 10:53 | PC.NURSE ---
Report to the Outpatient Waiting Room, entrance under the green pavilion located off [facility], at time 10:00 on date 01/08/22. OR Time: 12:00. - You and your visitor will be asked a series of questions to screen for COVID 19 for your protection. - Only one visitor is allowed at this time. - The patient visitor is requested to leave or wait in car when not with patient. - A mask is required within the hospital. Patients may have clear liquids (water, carbonated beverages, clear teas, apple juice) until 3 hours prior to surgery (9:00) with a maximum of 20 ounces. - No food from midnight until time of surgery Take the following medications with a SIP of water the morning of surgery: NONE Medications to discontinue per physician: N/A Date to take last dose: N/A Please no make-up, nail ukrainian, hairspray, perfume, deodorant, or body powder the day of surgery. No jewelry (including any body piercings) or valuables the day of surgery, leave them at home. Please take a shower or bath the night before, or the morning of, surgery with an antibacterial soap. Wear comfortable, loose fitting clothing. - Jewelry must be removed prior to entering the operating room. Rings and piercings that are not removed may be cut off. - The hospital will not accept responsibility for valuables. - Please leave all valuables, including medications, at home the day of surgery. If you are going home after surgery, a licensed milk pickup truck driver must drive you home. - NO public transportation without another adult. - We recommend that an adult stay with you for 24 hours following discharge. - We also recommend that you do not drive, make important decision, drink alcoholic beverages, or take any drugs that were not prescribed by your health care provider for at least 24 hours after your discharge time. Follow any additional instructions given to you from your surgeon. If you or anyone in your household have experienced Covid symptoms in the past week, please notify your surgeon or the nurse liaison at the phone number below for possible testing. Telephone instructions given to PT - KARIE PATEL and asked if any additional questions and then verbalized understanding. Patient advised to call surgeon office or pre surgery nurse liaison [phone] if any additional questions.
--- NOTE | 2022-01-05 13:46 | WPDANESEPPF ---
Anes - Initial Pre Proc Eval Procedure: Operation Date: 01/08/22 10:30 Proposed Procedures p Left Knee Arthroscopy, with Meniscectomy - Mark Chau MD Date/Time: 01/05/22 13:46 Surgeon: Mark Chau MD Pre Op Diagnosis: left knee medial meniscal tear Patient Data Age: 61 Gender: M Height: 1.7 m Weight: 131.54 kg Allergies Allergy/AdvReac Type Severity Reaction Status Date / Time No Known Allergies Allergy Verified 01/08/22 09:08 Home Medications Medication Instructions Recorded Confirmed Type aspirin 81 mg tablet,delayed 81 mg PO DAILY 10/21/19 01/08/22 History release (Aspir-) atorvastatin 10 mg tablet 10 mg PO DAILY 10/21/19 01/08/22 History clomiphene citrate 50 mg tablet 25 mg PO DAILY 10/21/19 01/08/22 History losartan 25 mg tablet 25 mg PO DAILY 10/21/19 01/08/22 History metformin 500 mg tablet 500 mg PO DAILY 10/21/19 01/08/22 History tamsulosin 0.4 mg capsule 0.4 mg PO DAILY 10/23/19 01/08/22 History meloxicam 15 mg tablet (Mobic) 15 mg PO DAILY #30 tabs 08/30/21 01/08/22 Rx glimepiride 2 mg tablet 2 mg PO DAILY 01/01/22 01/08/22 History insulin degludec 200 unit/mL (3 20 unit subcut HS 01/01/22 01/08/22 History mL) subcutaneous pen (Tresiba FlexTouch U-200 insulin) semaglutide 1 mg/dose (2 mg/1.5 1 mg subcut WEEKLY 01/03/22 History mL) subcutaneous pen injector (Ozempic) Patient hx anesthesia problems: none Family hx anesthesia problems: none Results Review: All pre-operative results and documents have been reviewed as part of the pre-operative evaluation. [facility] Past Medical History Medical History Acquired varus deformity of left ankle BPH (benign prostatic hyperplasia) Cavovarus deformity of foot, acquired Claustrophobia mild per patient questionnaire Diabetes Diarrhea Excessive thirst Hair loss Hemoglobin A1C between 7% and 9% indicating borderline diabetic control september 2020- = 7.1 History of anesthesia problem History of colon polyps History of pneumonia HTN (hypertension) Hyperlipidemia Kidney stone Morbid obesity with BMI of 45.0-49.9, adult ONESIMO (obstructive sleep apnea) Sleep disorder Type II diabetes mellitus Last A1c 7.1 Urinary frequency Urinary hesitancy Urinary tract infection Wears glasses Weight gain Surgical History Surgical History H/O foot surgery H/O gynecomastia H/O shoulder surgery Rotator Cuff 2014 *per patient questionnaire Hemorrhoid History of ankle surgery Right ankle 2006 *per patient questionnaire History of arthroscopy of knee RT S/P laparoscopic appendectomy 12/24/19 Family History Family History Father Family history of cardiovascular disease, Onset Age: 84 Gout Mother , metastatic lung cancer Metastatic lung carcinoma Other Brain cancer Carcinoma of colon HLD (hyperlipidemia) Social History Social History Smoking status: Never smoker Second hand tobacco smoke exposure: No Alcohol intake: current Alcohol use details: A COUPLE/YEAR Substance use: current Substance use type: marijuana Other substance usage details: THC GUMMIES FOR PAIN Living arrangements: with family 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 Gender identity (if verbalized by the patient): Male Spiritual care concerns: No Anes - Eval Final PreProcedure Day of Procedure 01/05/22 13:46 Patient weight: morbidly obese Heart: regular rate and rhythm Lungs: clear to auscultation Airway: Mallampati scale class II Neurological: alert and oriented Last oral intake: >/= 8 hours ASA classification: III Emergent: no Anesthetic plan: proceed Anesthesia type and monitoring: general LMA and standard monitoring Results Review: All pre-o
[2022-01-08] VITALS (9 sets, daily range): BP systolic 118–166; BP diastolic 75–99; PULSE 69–98; RESP 11–22; TEMP 36.6; O2SAT 93–100
[2022-01-08] MEDS: ACETAMINOPHEN 500 MG TABLET 1000 MG PO (09:15)
[2022-01-08] MEDS: LACTATED RINGERS 1,000 ML 30 ML IV CONT (09:20)
[2022-01-08 09:34] LABS: Glucose Point of Care 116 mg/dl (65-105)
--- NOTE | 2022-01-08 09:46 | WPDHPUPDATE1 ---
History and Physical Update Update Date/Time: 01/08/22 09:46 History and Physical has been reviewed, including an updated exam of the patient. There are NO changes in the patient's condition. Risks, benefits, and alternatives have been discussed and questions answered. Patient agrees to proceed with procedure.
[2022-01-08] MEDS: KETOROLAC 15 MG/ML VIAL (*BKC) IV PUSH (10:00)
[2022-01-08] MEDS: ceFAZolin 3 GM/D5W 100 ML 100 ML IVPB (10:31)
--- NOTE | 2022-01-08 11:42 | P.OP_ITS ---
Procedure Note - Detailed Date of Procedure 01/08/22 Pre-op Diagnosis left knee medial meniscal tear Post-op Diagnosis Other (Left knee medial meniscal tear with medial synovitis) Procedure Performed Left knee arthroscopy, partial medial meniscectomy, extensive medial synovectomy Surgeon Mark Chau MD Ice Cream Vault Worker Antonette Diallo Description of Procedure The patient was identified and proper site identified and he was taken to the operating room, transferred to the OR table placing her supine taking care to pa d the torso and extremities. After general anesthetic induction and intubation, a nonsterile tourniquet was placed high on the left thigh but was not used. The left lower extremity was positioned, prepped and draped in usual sterile fashion. 10 cc of 1% lidocaine was injected into the subcutaneous tissue in the area of the portals at start of the procedure, and an additional 10 at the end. The portals were established and the arthroscopy was carried out. Articular cartilage anteriorly showed extensive fraying on the undersurface of the patella however femoral trochlea was pretty good shape. Some fraying noted of the apex of the lateral meniscus as well as early fibrillation of the lateral articular cartilage. Anterior posterior cruciate ligaments were in continuity. Medially there were is grade 2 and three changes noted with complex tearing of the medial meniscus posterior horn into the midbody. The meniscus was contoured back to a stable rim with basket forceps and a shaver. Arthrocare Wand was used for hemostasis. Lateral gutter was clear. The medial gutter there was extensive synovitis with synovial proliferation along the medial margin of the medial femoral condyle. This area was debrided with a shaver and then reamed up with the ArthroCare Wand. There was also synovial proliferation overlying the anterior horn of the medial meniscus which was also debrided in that and cautery used for hemostasis. The knee was flushed with a copious amount of arthroscopic fluid and equipment was removed. Portals were closed with three O nylon suture and a sterile dressing was applied. He tolerated the procedure well, was awakened, extubated and taken to recovery area in stable condition. There were no known intraoperative complications. Estimated blood loss was negligible; he received perioperative antibiotics. Estimated Blood Loss 15 Tourniquet Time 0 Drains No Packing No Pathology None sent Complications No immediate complications Condition Stable Disposition PACU
[2022-01-08 11:46] LABS: Glucose Point of Care 125 mg/dl (65-105)
[2022-01-08] MEDS: fentaNYL CITRATE INJ (*CRX) 100 MCG/2 ML VIAL 25 MCG IV PUSH (12:23)
[2022-01-08] MEDS: ONDANSETRON INJ 4 MG/2 ML VIAL IV PUSH (12:57)
[2022-01-08] MEDS: oxyCODONE HCL (*CRX) 5 MG TAB IR PO (13:15)
--- NOTE | 2022-01-08 13:57 | SUR.PHASEII ---
[id number] BERNAL IN REGARDS TO PATIENT WANTING SOMETHING FOR PAIN BESIDES HYDROCODONE.
--- NOTE | 2022-01-08 14:05 | SUR.PHASEII ---
1404 DR BERNAL CALLED BACK & STATES A NEW PRESCRIPTION FOR PAIN WILL BE CALLED INTO THE PATIENT'S PHARMACY.
== END 2022-01-08 14:12 | disposition home or self-care (01) ==
PROVIDERS: PCP Family Medicine; Visit Provider Orthopaedic Surgery
PROC: (CPT 29870; principal; 2022-01-08 10:30)
DX: M23.322 Other meniscus derangements, posterior horn of medial meniscus, left knee (principal); M65.862 Other synovitis and tenosynovitis, left lower leg; Z79.899 Other long term (current) drug therapy; E11.9 Type 2 diabetes mellitus without complications; I10 Essential (primary) hypertension; E78.5 Hyperlipidemia, unspecified; G47.33 Obstructive sleep apnea (adult) (pediatric); N40.0 Benign prostatic hyperplasia without lower urinary tract symptoms; Z79.4 Long term (current) use of insulin; Z79.84 Long term (current) use of oral hypoglycemic drugs; Z79.82 Long term (current) use of aspirin; F12.90 Cannabis use, unspecified, uncomplicated; E66.01 Morbid (severe) obesity due to excess calories; Z68.42 Body mass index [BMI] 45.0-49.9, adult
CPT/HCPCS: 29881; 82948; A9270; J0690; J1100; J1885; J2405; J2704; J3010; J7120

== ENCOUNTER 2022-01-12 09:15 | Outpatient (RCR) | payer OTHER, SELFPAY ==
[2021-11-22 09:37] VITALS: BMI 45.8
[2021-11-22 09:44] VITALS: BMI 45.8
== END 2022-02-07 11:44 | disposition home or self-care (01) ==
LOC: ANHDMC 09:15
PROVIDERS: PCP Family Medicine; Visit Provider Nurse Practitioner
DX: E11.65 Type 2 diabetes mellitus with hyperglycemia (principal); E11.649 Type 2 diabetes mellitus with hypoglycemia without coma; Z71.3 Dietary counseling and surveillance; Z71.89 Other specified counseling
CPT/HCPCS: 97802; G0108

== ENCOUNTER → 2022-01-23 10:49 | Outpatient (CLI) | payer OTHER, SELFPAY ==
--- NOTE | ~2022-01-23 | CT_ITS ---
EXAMINATION: CT abdomen pelvis wo/w con DATE: 01/23/2022 11:38 INDICATION: Microscopic hematuria. History of kidney stone 22 years ago TECHNIQUE: Computed tomography (CT) of the abdomen and pelvis was performed without and subsequently with 130 CC Omnipaque 300 intravenous contrast. Automated exposure control and iterative reconstructi on technique were employed. Exam dose: 2263.89 mGy-cm total exam DLP. COMPARISON: 01/23/2022 KUB 12/24/2019 CT abdomen pelvis FINDINGS: The lung bases are clear. Normal heart size. No pericardial or pleural effusion. There is diffuse hepatic steatosis. No hepatic space-occupying mass lesion is evident. The gallbladde r is present. No bile duct or pancreatic duct dilatation. No pancreatic mass lesion or calcification is detected. Normal splenic size. Normal morphology of the adrenal glands. Very small right lower pole and mid renal cyst. 5 mm left renal cyst. There are 2 approximately 3 mm or smaller nonobstructing left renal calculi. There are proxy 5 pinpoint nonobstructing calculi and/or arterial calcifications of the right kidney. No ureteral calculus or hydroureteronephrosis of either kidney. Normal caliber of the abdominal aorta. No intraperitoneal or retroperitoneal or pelvic mass lesion or adenopathy or ascites. The urinary bladder is unremarkable. There is prostate enlargement and calcification. There is mild colonic diverticulosis; no CT evidence of diverticulitis. Status post appendectomy. No bowel obstruction, bowel wall thickening, pneumatosis or intraperitoneal free air is detected. Diffuse idiopathic skeletal hyperostosis of the thoracic and upper lumbar spine. No suspicious osteol ytic or osteoblastic lesions are noted. IMPRESSION: Hepatic steatosis Mild bilateral nonobstructive nephrolithiasis; no ureteral calculus or hydroureteronephrosis Prostate enlargement and calcification Status post appendectomy Mild colonic diverticulosis; no evidence of diverticulitis Reviewed, dictated and finalized at Location A. Reviewed, dictated and finalized at location B. IMPRESSION: Hepatic steatosis Mild bilateral nonobstructive nephrolithiasis; no ureteral calculus or hydroure teronephrosis Prostate enlargement and calcification Status post appendectomy Mild colonic diverticulosis; no evidence of diverticulitis
--- NOTE | ~2022-01-23 | XR_ITS ---
EXAMINATION: XR abdomen/kub 1V INDICATION: Microscopic hematuria TECHNIQUE: Supine views of the abdomen were obtained on 2 radiographs. COMPARISON: CT from today FINDINGS: Punctate bilateral nephrolithiasis seen on today's CT is not well demonstrated. No urolithi asis is seen. There are phleboliths of the pelvis. The bowel gas pattern is normal. There is a modera te volume of colonic stool. There is moderate lumbar spondylosis. IMPRESSION: 1. No urolithiasis identified. Reviewed, dictated and finalized at location A.
[2022-01-23 11:16] LABS: Estimated Glomerular Filt Rate > 60
== END ==
PROVIDERS: PCP Family Medicine; Visit Provider Urology
DX: R31.29 Other microscopic hematuria (principal); K76.0 Fatty (change of) liver, not elsewhere classified; N20.0 Calculus of kidney; N40.0 Benign prostatic hyperplasia without lower urinary tract symptoms; K57.30 Diverticulosis of large intestine without perforation or abscess without bleeding; M47.816 Spondylosis without myelopathy or radiculopathy, lumbar region
CPT/HCPCS: 74018; 74178; Q9967

== ENCOUNTER 2022-01-24 08:45 | Outpatient (RCR) | payer OTHER, SELFPAY ==
--- NOTE | 2022-01-10 10:05 | PTOPEVAL ---
PHYSICAL THERAPY EVALUATION AND PLAN OF CARE 01-10-22 Thank you for referring Sam Trent to [facility], s/p L knee arthroscopy. He is scheduled to be seen for therapy? 1-2 x/week for 6 weeks. Please review, sign, date and return this plan of care MARY. I agree with and certify that the following plan of care is medically necessary. Referring Physician Date Attending Provider: Mark Chau MD Past Medical History Source of Past Medical History Recalled from Previous Visit, Confirmed with Patient/Family Neurological History Hx Neurological Disorders No Significant History Cardiovascular History Hx Hypercholesterolemia Yes: meds Hx Hypertension Yes: meds Respiratory History Hx Pneumonia Yes: CHILDHOOD Hx Sleep Apnea Yes: BiPAP Gastrointestinal History Hx Appendectomy Yes Hx Hemorrhoids Yes: HEMORRHOIDECTOMY Hx Other Gastrointestinal Disorders Yes: FREQUENT DIARRHEA Genitourinary History Hx Benign Prostatic Hyperplasia Yes Hx Kidney Stones Yes Musculoskeletal History Hx Arthritis Yes: knee and ankle L Hx Crutches or Walker Use Yes: CRUTCHES Query Text:If Yes, Enter Crutches, Walker, or Both in the Comment Hx Fractures Yes: ARM A CHILD, TOES Hx Orthopedic Surgery Yes: R FOOT ORIF, RT KNEE SCOPE, LT rot cuff repair Hx Other Musculoskeletal Disorders Yes: L ankle pain- have orthotics for shoe; B hip pain Hematological History Hx Hematological Disorders No Significant History Endocrine History Hx Diabetes Yes: type 2-meds HEENT History Hx Tonsillectomy Yes Integumentary History Hx Skin Disorders No Significant History Reproductive History Hx Reproductive Disorders No Significant History Psychosocial History Hx Depression Yes Pain History History of Any Previous or Ongoing No Significant History Instance of Pain Anesthesia History Hx Post-Op Nausea/Vomiting Yes Other History Hx Implanted Device Yes: RT HEEL SCREW Hx Other Medical Conditions Yes: obesity-- working on wt loss- have gained since decr mobility Evaluation Information Diagnosis L knee arthroscopy Onset 01-08-22 Subjective Information since surgery, resting with Query Text:As Reported By Patient/ ice and elevation to L LE; Family using crutches for walking; have had L knee and ankle problems since 2019; Prior Level of Function Activity Level (Last 3 Months) Occupation [employer] professor Activity of Daily Living Ability Independent Indoor
--- NOTE | 2022-01-16 09:22 | PCPTNOTE ---
Patient canceled appointment this date due to having to attend a .
== END 2022-04-05 13:33 | disposition home or self-care (01) ==
LOC: ANHPT 08:45
PROVIDERS: PCP Family Medicine; Visit Provider Orthopaedic Surgery
DX: Z48.89 Encounter for other specified surgical aftercare (principal); Z98.890 Other specified postprocedural states
CPT/HCPCS: 97110; 97112; 97161; 97530

== ENCOUNTER 2022-03-07 08:56 | Outpatient (CLI) | payer OTHER, SELFPAY ==
--- NOTE | ~2022-03-07 | US_ITS ---
EXAMINATION:US venous doppler LE LT INDICATION:Left popliteal pain TECHNIQUE: Multiple grayscale, color flow and Doppler images of the left lower extremity deep venous systems were obtained and reviewed. COMPARISON:No prior studies for comparison. FINDINGS: The common femoral, superficial femoral and popliteal veins demonstrate normal respiratory variation, augmentation and compressibility. Color flow is also seen within the posterior tibial, pe roneal, greater saphenous and profunda veins. IMPRESSION: 1: No lower extremity deep venous thrombosis. Reviewed, dictated and finalized at location A.
== END 2022-03-07 08:57 | disposition home or self-care (01) ==
PROVIDERS: PCP Family Medicine; Visit Provider Orthopaedic Surgery
DX: M79.605 Pain in left leg (principal); M79.89 Other specified soft tissue disorders
CPT/HCPCS: 93971

== ENCOUNTER 2022-03-13 09:12 | Outpatient (RCR) | payer OTHER, SELFPAY | END 2022-05-07 16:26 | disposition home or self-care (01) | LOC: ANHDMC 09:12 | PROVIDERS: PCP Family Medicine; Visit Provider Nurse Practitioner | DX: E11.65 Type 2 diabetes mellitus with hyperglycemia (principal); Z71.89 Other specified counseling | CPT/HCPCS: 99199; G0108 ==

== ENCOUNTER 2023-06-14 00:20 | Day surgery (SDC) | payer OTHER, SELFPAY ==
[2023-05-31 13:28] VITALS: BMI 44.4
--- NOTE | 2023-06-12 09:14 | SUR.PREOP ---
Patient called regarding upcoming procedure. Reviewed preop instructions, appointment times, and procedure prep.
--- NOTE | 2023-06-13 15:43 | PM.HPGS ---
History of Present Illness History of Present Illness Consent: Risks, benefits, and alternatives have been discussed and questions answered. Patient agrees to proceed with procedure. Chief complaint: Iron Deficiency Anemia,Unspecified Narrative: Sam Trent is a 63 year old male with a history of polyps who also has been found to have iron deficiency anemia. His last colonoscopy was 8 years ago. Review of Systems Review of Systems: All systems reviewed & are unremarkable except as noted in HPI and below PMFSH Past Medical History Medical History Acquired varus deformity of left ankle BPH (benign prostatic hyperplasia) Cavovarus deformity of foot, acquired Claustrophobia mild per patient questionnaire Diabetes Diarrhea Excessive thirst Hair loss Hemoglobin A1C between 7% and 9% indicating borderline diabetic control september 2020- = 7.1 History of anesthesia problem History of colon polyps History of pneumonia HTN (hypertension) Hyperlipidemia Kidney stone Morbid obesity with BMI of 45.0-49.9, adult ONESIMO (obstructive sleep apnea) Sleep disorder Type II diabetes mellitus Last A1c 7.1 Urinary frequency Urinary hesitancy Urinary tract infection Wears glasses Weight gain Surgical History Surgical History H/O foot surgery H/O gynecomastia H/O shoulder surgery Rotator Cuff 2014 *per patient questionnaire Hemorrhoid History of ankle surgery Right ankle 2006 *per patient questionnaire History of arthroscopy of knee RT History of arthroscopy of left knee Medial meniscectomy with medial synovectomy January 08, 2022 S/P laparoscopic appendectomy 12/24/19 Family History Family History Father Family history of cardiovascular disease, Onset Age: 84 Gout Mother , metastatic lung cancer Metastatic lung carcinoma Other Brain cancer Carcinoma of colon HLD (hyperlipidemia) Social History Social History Smoking status: Never smoker Second hand tobacco smoke exposure: No Alcohol intake: current Alcohol use details: A COUPLE/YEAR Substance use: current Substance use type: does not use Other substance usage details: THC GUMMIES FOR PAIN Living arrangements: with family Occupation/Education: occupation 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 Gender identity (if verbalized by the patient): Male Spiritual care concerns: No Meds Home Medications and Allergies Home Medications Medication Instructions Recorded Confirmed Type aspirin 81 mg tablet,delayed 81 mg PO DAILY 10/21/19 06/14/23 History release (Aspir-) atorvastatin 10 mg tablet 10 mg PO DAILY 10/21/19 06/14/23 History losartan 25 mg tablet 25 mg PO DAILY 10/21/19 06/14/23 History tamsulosin 0.4 mg capsule 0.4 mg PO DAILY 10/23/19 06/14/23 History glimepiride 2 mg tablet 2 mg PO DAILY 01/01/22 06/14/23 History insulin degludec 200 unit/mL (3 20 unit subcut HS 01/01/22 06/14/23 History mL) subcutaneous pen (Tresiba FlexTouch U-200 insulin) semaglutide 1 mg/dose (2 mg/1.5 1 mg subcut WEEKLY 01/03/22 06/14/23 History mL) subcutaneous pen injector (Ozempic) metformin 500 mg tablet 500 mg PO DAILY 08/31/22 06/14/23 History testosterone undecanoate 237 mg 237 mg PO BID 05/31/23 06/14/23 History capsule (Jatenzo) Allergies Allergy/AdvReac Type Severity Reaction Status Date / Time oxycodone Allergy Intermediate Nausea Verified 06/14/23 11:29 Exam Const: General: alert Orientation/consciousness: patient oriented x3 Resp: Auscultation: clear to auscultation bilaterally Cardio: Rhythm: regular rhythm GI: GI Palp: Yes Soft to palpation and No Tenderness to palpation present (GI) Neuro: General: patient oriented x3 Assessment and Plan Asses
[2023-06-14 11:30] VITALS: BMI 43.5
[2023-06-14 11:34] VITALS: BP 136/80; PULSE 68; RESP 20; TEMP 35.8; O2SAT 98
--- NOTE | 2023-06-14 11:39 | SUR.PREOP ---
Blood Sugar 99 per patient's dexcom.
[2023-06-14] MEDS: LACTATED RINGERS 1,000 ML 150 ML IV CONT (11:44)
--- NOTE | 2023-06-14 12:08 | WPDANESEPPF ---
Anes - Initial Pre Proc Eval Procedure: Operation Date: 06/14/23 12:30 Proposed Procedures p Colonoscopy - Gelacio Ashford MD Date/Time: 06/14/23 12:08 Surgeon: Gelacio Ashford MD Pre Op Diagnosis: Iron Deficiency Anemia,Unspecified Patient Data Age: 63 Gender: M Height: 1.7 m Weight: 126.1 kg Last Vital Signs Temp 96.5 F L 06/14/23 11:34 Pulse 68 06/14/23 11:34 Resp 20 06/14/23 11:34 BP 136/80 06/14/23 11:34 Pulse Ox 98 06/14/23 11:34 O2 Del Method Room Air 06/14/23 11:34 Allergies Allergy/AdvReac Type Severity Reaction Status Date / Time oxycodone Allergy Intermediate Nausea Verified 06/14/23 11:29 Home Medications Medication Instructions Recorded Confirmed Type aspirin 81 mg tablet,delayed 81 mg PO DAILY 10/21/19 06/14/23 History release (Aspir-) atorvastatin 10 mg tablet 10 mg PO DAILY 10/21/19 06/14/23 History losartan 25 mg tablet 25 mg PO DAILY 10/21/19 06/14/23 History tamsulosin 0.4 mg capsule 0.4 mg PO DAILY 10/23/19 06/14/23 History glimepiride 2 mg tablet 2 mg PO DAILY 01/01/22 06/14/23 History insulin degludec 200 unit/mL (3 20 unit subcut HS 01/01/22 06/14/23 History mL) subcutaneous pen (Tresiba FlexTouch U-200 insulin) semaglutide 1 mg/dose (2 mg/1.5 1 mg subcut WEEKLY 01/03/22 06/14/23 History mL) subcutaneous pen injector (Ozempic) metformin 500 mg tablet 500 mg PO DAILY 08/31/22 06/14/23 History testosterone undecanoate 237 mg 237 mg PO BID 05/31/23 06/14/23 History capsule (Jatenzo) Patient hx anesthesia problems: none Family hx anesthesia problems: none Results Review: All pre-operative results and documents have been reviewed as part of the pre-operative evaluation. [facility] Past Medical History Medical History Acquired varus deformity of left ankle BPH (benign prostatic hyperplasia) Cavovarus deformity of foot, acquired Claustrophobia mild per patient questionnaire Diabetes Diarrhea Excessive thirst Hair loss Hemoglobin A1C between 7% and 9% indicating borderline diabetic control september 2020- = 7.1 History of anesthesia problem History of colon polyps History of pneumonia HTN (hypertension) Hyperlipidemia Kidney stone Morbid obesity with BMI of 45.0-49.9, adult ONESIMO (obstructive sleep apnea) Sleep disorder Type II diabetes mellitus Last A1c 7.1 Urinary frequency Urinary hesitancy Urinary tract infection Wears glasses Weight gain Surgical History Surgical History H/O foot surgery H/O gynecomastia H/O shoulder surgery Rotator Cuff 2014 *per patient questionnaire Hemorrhoid History of ankle surgery Right ankle 2006 *per patient questionnaire History of arthroscopy of knee RT History of arthroscopy of left knee Medial meniscectomy with medial synovectomy January 08, 2022 S/P laparoscopic appendectomy 12/24/19 Family History Family History Father Family history of cardiovascular disease, Onset Age: 84 Gout Mother , metastatic lung cancer Metastatic lung carcinoma Other Brain cancer Carcinoma of colon HLD (hyperlipidemia) Social History Social History Smoking status: Never smoker Second hand tobacco smoke exposure: No Alcohol intake: current Alcohol use details: A COUPLE/YEAR Substance use: current Substance use type: does not use Other substance usage details: THC GUMMIES FOR PAIN Living arrangements: with family Occupation/Education: occupation 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
[2023-06-14 12:40] VITALS: BP 144/84; PULSE 72; RESP 20; O2SAT 100
[2023-06-14 12:50] VITALS: BP 139/78; PULSE 63; RESP 22; O2SAT 100
[2023-06-14 13:00] VITALS: BP 135/100; PULSE 68; RESP 19; O2SAT 100
[2023-06-14 13:03] LABS: Glucose Point of Care 74 mg/dl (65-105)
== END 2023-06-14 13:56 | disposition home or self-care (01) ==
PROVIDERS: PCP Family Medicine; Visit Provider Internal Medicine Gastroenterology
PROC: 0DJD8ZZ Inspection of Lower Intestinal Tract, Via Natural or Artificial Opening Endoscopic (ICD-10-PCS; CPT 45378; principal; 2023-06-14 12:30)
DX: D50.9 Iron deficiency anemia, unspecified (principal); D12.2 Benign neoplasm of ascending colon; K57.30 Diverticulosis of large intestine without perforation or abscess without bleeding; I10 Essential (primary) hypertension; E78.5 Hyperlipidemia, unspecified; G47.33 Obstructive sleep apnea (adult) (pediatric); N40.0 Benign prostatic hyperplasia without lower urinary tract symptoms; F40.240 Claustrophobia; E11.9 Type 2 diabetes mellitus without complications; G47.9 Sleep disorder, unspecified; Z79.82 Long term (current) use of aspirin; Z79.84 Long term (current) use of oral hypoglycemic drugs; Z79.4 Long term (current) use of insulin; Z79.85 Long-term (current) use of injectable non-insulin antidiabetic drugs; Z82.49 Family history of ischemic heart disease and other diseases of the circulatory system; Z80.1 Family history of malignant neoplasm of trachea, bronchus and lung; Z80.0 Family history of malignant neoplasm of digestive organs; Z80.8 Family history of malignant neoplasm of other organs or systems; E66.01 Morbid (severe) obesity due to excess calories; Z68.41 Body mass index [BMI] 40.0-44.9, adult
CPT/HCPCS: 45380; 82948; 88305; J2001; J2405; J2704; J7120

== ENCOUNTER 2023-06-19 14:11 | Outpatient (CLI) | payer OTHER, SELFPAY ==
[2023-06-19 14:31] LABS: Hematocrit 52.5 % (42.0-52.0); Hemoglobin 16.4 g/dL (14.0-18.0); Mean Corpuscular HGB Conc 31.2 g/dl (32-36); Mean Corpuscular Hemoglobin 25.7 pg (26-34); Mean Corpuscular Volume 82.3 fl (80-100); Mean Platelet Volume 10.2 fl (7.4-10.4); Platelet Count Result 233 k/mm3 (150-375); Red Blood Count 6.38 M/mm3 (4.6-6.20); Red Cell Distribution Width 17.2 % (11.5-14.5); White Blood Count 8.7 K/mm3 (4.5-10.0)
[2023-06-19 14:40] LABS: Eosinophils Absolute Manual 0.26 K/mm3 (0.02-0.5); Eosinophils Percent Manual 3 % (0-4); Lymphocytes Absolute Manual 3.04 K/mm3 (1.1-4.5); Monocytes Absolute Manual 0.43 K/mm3 (0.1-0.90); Monocytes Percent Manual 5 % (3-9); Neutrophils Percent Manual 57 % (46-73); Platelet Estimate Adequate (Adequate); Schistocytes None Seen (NORMAL); Total Cells Counted 100
[2023-06-19 17:09] LABS: Iron 49 ug/dL (49-181)
[2023-06-19 17:13] LABS: Alanine Aminotransferase 38 U/L (6-50); Albumin Level 4.4 g/dL (3.5-5.1); Alkaline Phosphatase 102 U/L (38-126); Anion Gap 11 mmol/L (8-16); Aspartate Amino Transferase 31 U/L (17-59); Bilirubin,Total 0.6 mg/dL (0.2-1.3); Blood Urea Nitrogen 17 mg/dL (9-20); Calcium 9.3 mg/dL (8.4-10.2); Carbon Dioxide 27 mmol/L (22-30); Chloride 101 mmol/L (98-107); Estimated Glomerular Filt Rate > 60; Glucose 151 mg/dL (65-110); Potassium 4.2 mmol/L (3.4-5.0); Sodium 139 mmol/L (137-145)
[2023-06-19 17:22] LABS: Percent Iron Saturation 11 % (20-50)
[2023-06-19 20:14] LABS: Folic Acid 10.3 ng/mL (2.76->20)
[2023-06-23 23:26] LABS: Methylmalonic Acid 93 nmol/L (87-318)
[2023-06-25 12:37] LABS: Testosterone Free 45.5 pg/mL (35.0-155.0); Testosterone Total 197 ng/dL (250-1100)
== END 2023-06-19 14:12 | disposition home or self-care (01) ==
LOC: ANHLAB 14:16
PROVIDERS: Nurse Practitioner Family; PCP Family Medicine; Visit Provider Internal Medicine Hematology & Oncology
DX: D50.9 Iron deficiency anemia, unspecified (principal); E29.1 Testicular hypofunction
CPT/HCPCS: 36415; 80053; 82607; 82728; 82746; 83540; 83550; 83921; 84402; 84403; 85025

== ENCOUNTER 2024-02-27 07:32 | Outpatient (CLI) | payer OTHER, SELFPAY ==
--- NOTE | 2024-02-27 | ECHO_ITS ---
Patient Info Name: Sam Trent Age: 63 years : 1960 Gender: Male Ht: 67 in Wt: 290 lbs BSA: 2.56 m2 HR: 75 bpm BP: 146 / 89 mmHg Technical Quality: Fair Exam Date: 02/27/2024 7:54 AM Exam Location: Echo Lab Patient Status: Outpatient Admit Date: 02/27/2024 Staff Ordering Physician: NatyKalani PA-C Crossbow Maker: Jose Hall RDCS Attending Provider: Judi, Kalani MUNROE Exam Type: CA echo doppler color flow Study Info Indications - benign essential hypertension Complete two-dimensional, color flow and Doppler transthoracic echocardiogram is performed. Summary 1. Complete two-dimensional, color flow and Doppler transthoracic echocardiogram is performed. 2. Left ventricular chamber dimension is normal. 3. Left ventricular systolic function is normal, estimated at 55-60%. 4. There is mild concentric increased left ventricular wall thickness. 5. The left ventricular diastolic function is grade I diastolic dysfunction. 6. E/e' 5 is not elevated. 7. Left atrial chamber dimension is mildly enlarged. 8. There is trace mitral valve regurgitation. 9. No pulmonary hypertension, estimated pulmonary arterial systolic pressure is 11 mmHg. Left Ventricle E/e' 5 is not elevated. Left ventricular chamber dimension is normal. Left ventricular systolic function is normal, estimated at 55-60%. There is mild concentric increased left ventricular wall thickness. The left ventricular diastolic function is grade I diastolic dysfunction. Right Ventricle Right ventricular systolic function is normal and with normal TAPSE 2.1 cm. Right ventricular chamber dimension is normal. Left Atria Left atrial chamber dimension is mildly enlarged. Right Atria Right atrial chamber dimension is normal. Aortic Valve The aortic valve is trileaflet. There is no aortic valve stenosis. There is no aortic valve regurgitation. Pulmonic Valve There is no pulmonic regurgitation. Mitral Valve There is no mitral valve stenosis. There is trace mitral valve regurgitation. Tricuspid Valve There is no tricuspid valve regurgitation. No pulmonary hypertension, estimated pulmonary arterial systolic pressure is 11 mmHg. Pericardium/Pleural There is no pericardial effusion. Inferior Vena Cava Normal inferior vena cava with >50% collapse upon inspiration consistent with normal right atrial pressure, 5 mmHg. Aorta The aortic root size at the sinus of Valsalva is normal. Left Ventricular Outflow Tract Name Value Normal LVOT 2D LVOT Diameter 2.3 cm LVOT Doppler LVOT Peak Gradient 3 mmHg LVOT Mean Gradient 2 mmHg LVOT VTI 21 cm LVOT VTI/AV VTI Ratio 1.0 LVOT Stroke Volume 86 ml LVOT CO 6.4 l/min LVOT CI 2.5 l/min/m2 Pulmonic Valve Name Value Normal PV Doppler
== END 2024-02-27 07:33 | disposition home or self-care (01) ==
LOC: ANHCARD 07:32
PROVIDERS: PCP Physician Assistant; Visit Provider Physician Assistant
DX: I10 Essential (primary) hypertension (principal)
CPT/HCPCS: 93306

== ENCOUNTER 2024-07-16 08:26 | Outpatient (CLI) | payer OTHER, SELFPAY ==
--- NOTE | 2024-07-16 | EST_ITS ---
Patient Info Name: Sam Trent Age: 64 years : 1960 Gender: Male Ht: 67 in Wt: 297 lbs BSA: 2.60 m2 Exam Date: 07/16/2024 9:19 AM Exam Location: Echo Lab Patient Status: Outpatient Admit Date: 07/16/2024 Staff Ordering Physician: Naty, Kalani MUNROE Attending Provider: Naty, Kalani MUNROE Exercise Technologist: Gisel Llamas RDCS Nurse: Laurence Hebert APN Exam Type: CA stress will w NM Study Info Indications R06.09 - Other forms of dyspnea A regadenoson stress test was performed. Summary 1. No abnormal ST-T wave changes with lexiscan. Protocol: Roshan Stress ECG Details Stage: REST Duration (min): 1 min : 38 sec Speed (mph): 0.0 Grade (%): 0 HR (bpm): 70 SBP (mmHg): 119 DBP (mmHg): 81 METS: --- Stage: REST Duration (min): 6 min : 2 sec Speed (mph): 0.0 Grade (%): 0 HR (bpm): 70 SBP (mmHg): 119 DBP (mmHg): 81 METS: --- Stage: STAGE 1 Duration (min): 0 min : 43 sec Speed (mph): 0.0 Grade (%): 0 HR (bpm): 68 SBP (mmHg): 119 DBP (mmHg): 81 METS: --- Stage: RECOVERY Duration (min): 0 min : 16 sec Speed (mph): 0.0 Grade (%): 0 HR (bpm): 70 SBP (mmHg): 119 DBP (mmHg): 81 METS: --- Stage: RECOVERY Duration (min): 1 min : 16 sec Speed (mph): 0.0 Grade (%): 0 HR (bpm): 71 SBP (mmHg): 119 DBP (mmHg): 81 METS: --- Stage: RECOVERY Duration (min): 1 min : 48 sec Speed (mph): 0.0 Grade (%): 0 HR (bpm): 71 SBP (mmHg): 119 DBP (mmHg): 81 METS: --- Rest HR: 70 bpm Peak HR: 71 bpm Rest Sys BP: 119 mmHg Max Pred HR: 155 bpm % Max Pred HR: 46 % Target HR: 132 bpm Max RPP: 8,211 bpm*mmHg Uribe Score: -[address] Seg Deviation: 1 mm Total Time: 0 min : 43 sec Rest Hirsch BP: 81 mmHg Angina Score: None Total METS: 1.6 Resting ECG Sinus rhythm with no ischemic ST T wave changes. Stress ECG No ischemic ST T wave changes with Lexiscan. Arrhythmias None. Report Signatures
--- NOTE | ~2024-07-16 | NM_ITS ---
EXAMINATION: NM will stress w perfusion DATE: 07/16/2024 10:39 INDICATION: Other forms of dyspnea TECHNIQUE: Rest images were obtained following intravenous administration of 9.8 mCi Tc99m tetrofosmi n (Myoview). The patient was infused intravenously with Lexiscan (Regadenoson). Then, 31.4 mCi Tc99m tetrofosmin (Myoview) was administered intravenously, and stress images were obtained. Data was recon structed into short axis and horizontal and vertical long axis SPECT images. Gated SPECT images were also obtained. COMPARISON: None. FINDINGS: There is no definite reversible or fixed perfusion abnormality to suggest ischemia or infar ction. There is normal left ventricular chamber size, wall motion and ejection fraction. Left ventr icular ejection fraction measures 60%. IMPRESSION: 1. Normal myocardial perfusion at rest and during stress. 2. Left ventricular ejection fraction measuring 60%. Reviewed, dictated and finalized at location A. PAYROLL COORDINATOR
== END 2024-07-16 08:27 | disposition home or self-care (01) ==
PROVIDERS: PCP Physician Assistant; Visit Provider Physician Assistant
DX: R06.09 Other forms of dyspnea (principal)
CPT/HCPCS: 78452; 93017; A9502; J2785

== ENCOUNTER 2024-08-10 13:56 | Outpatient (CLI) | payer OTHER, SELFPAY ==
--- NOTE | ~2024-08-10 | MR_ITS ---
EXAMINATION: MR brain/brain stem wo/w con DATE: 08/10/2024 14:47 INDICATION: Disorder of pituitary gland. TECHNIQUE: Magnetic resonance imaging (MRI) of the brain and brainstem was performed without and with 20 mL MultiHance intravenous contrast. COMPARISON: None. FINDINGS: The pituitary is normal in size with height of 4 mm. The infundibulum is at the midline. Th ere are scattered areas of nonspecific increased T2-weighted signal intensity in the cerebral white m atter, which is within normal limits for the patient's age. There is no intracranial hemorrhage, acut e infarction, or abnormal intracranial mass lesion. The ventricles are normal in size. There is mucos al thickening in the ethmoid sinuses. The orbits are normal. The mastoid air cells are normal. IMPRESSION: 1. Normal pituitary. Normal aging brain. Reviewed, dictated and finalized at location A. LATION PACKER
== END 2024-08-10 13:57 | disposition home or self-care (01) ==
LOC: MICIMG 13:56
PROVIDERS: PCP Physician Assistant; Visit Provider Internal Medicine Endocrinology, Diabetes & Metabolism
DX: E23.7 Disorder of pituitary gland, unspecified (principal)
CPT/HCPCS: 70553; A9577